=== PATIENT | male | born 2005 | race Caucasian/White ===

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

== ENCOUNTER 2023-01-06 11:16 | Outpatient (REF) | payer BC, SELFPAY ==
[2023-01-06 12:17] LABS: Sickle Cell Scr NEGATIVE (NEGATIVE)
== END 2023-01-06 11:17 | disposition home or self-care (01) ==
LOC: HO.LAB 11:16
PROVIDERS: PCP Physician Assistant; Visit Provider Physician Assistant
DX: Z13.0 Encounter for screening for diseases of the blood and blood-forming organs and certain disorders involving the immune mechanism (principal)
CPT/HCPCS: 36415; 85660

== ENCOUNTER 2023-02-10 14:11 | Outpatient (AMB) | payer BC, SELFPAY ==
--- NOTE | 2023-02-10 14:31 | AM.OFFVISNUR ---
Intake Intake Visit Reasons: Men B Allergies No Known Allergies Allergy (Verified 01/06/23 10:32) Nursing Note Pt here for Men B #1, pt received vaccine and tolerated well. Pt to return in 6 mo for 2nd dose. Immunizations [facility] Performing Provider: Elli Madrid PA-C Administered by: Naomie Goode RN on 02/10/23 14:33 Dose Route Admin Location Lot Number Expiration Date [facility] Supervisor [employer] 0.5 mL IM Left Deltoid [id number] 11/15/23 [id number] [employer] VIS Given Date VIS Provided VIS Publication Date 02/10/23 Single Vaccine 21 Eligibility Eligibility Date Funding Source Not [facility] Eligible 02/10/23 Private Coding Diagnoses Assessment & Plan Assessment & Plan Orders: Orders Meningococcal B Immunization Today Z23 - Encounter for immunization
== END 2023-02-10 14:54 | disposition home or self-care (01) ==
LOC: HO.HMGP 14:11
PROVIDERS: PCP Physician Assistant; Visit Provider Physician Assistant
DX: Z23 Encounter for immunization (principal)
CPT/HCPCS: 90471; 90621

== ENCOUNTER → 2023-02-10 14:35 | Outpatient (REF) | payer BC, SELFPAY ==
--- NOTE | 2023-02-10 14:59 | ECG_ITS ---
Test Reason : CHEST PAIN Blood Pressure : / mmHG Vent. Rate : 056 BPM Atrial Rate : 056 BPM P-R Int : 166 ms QRS Dur : 104 ms QT Int : 402 ms P-R-T Axes : 068 089 060 degrees QTc Int : 387 ms Sinus bradycardia with sinus arrhythmia Early repolarization Otherwise normal ECG No previous ECGs available Referred By: Elli Madrid Electronically Signed By:GABO CARDOZA MD
== END ==
LOC: HO.CARD 14:35
PROVIDERS: PCP Physician Assistant; Visit Provider Physician Assistant
DX: R07.9 Chest pain, unspecified (principal)
CPT/HCPCS: 93005

== ENCOUNTER → 2023-02-10 14:59 | Outpatient (BNV) | payer BC, SELFPAY | PROVIDERS: PCP Physician Assistant; Visit Provider Internal Medicine Cardiovascular Disease | DX: R07.9 Chest pain, unspecified (principal) | CPT/HCPCS: 93010 ==

== ENCOUNTER 2023-05-09 09:27 | Outpatient (REF) | payer BC, SELFPAY ==
--- NOTE | ~2023-05-09 | XR_ITS ---
EXAMINATION: XR FOOT, RIGHT CLINICAL INFORMATION: Pain COMPARISON: None available. TECHNIQUE: AP, lateral, and oblique views of the right foot. FINDINGS: Minimally displaced transverse fracture involving the fifth proximal phalanx distal metadiaphysis. Slight soft tissue prominence overlying fracture site. Joint spaces and alignment are otherwise maintained. XR/XR foot RT min 3V IMPRESSION: 1. Minimally displaced transverse fracture involving the fifth proximal phalanx distal metadiaphysis. 2. Slight soft tissue prominence overlying fracture site.
== END 2023-05-09 09:28 | disposition home or self-care (01) ==
LOC: HO.HMGCX 09:27
PROVIDERS: PCP Physician Assistant; Visit Provider Physician Assistant
DX: M79.671 Pain in right foot (principal)
CPT/HCPCS: 73630

== ENCOUNTER 2023-12-07 12:44 | Outpatient (REF) | payer BC, SELFPAY ==
[2023-12-07 14:23] LABS: Alanine Aminotransferase 19 U/L (0-40); Aspartate Amino Transferase 29 U/L (5-37); Triglycerides 128 mg/dL (<150)
== END 2023-12-07 12:45 | disposition home or self-care (01) ==
LOC: HO.LAB 12:44
PROVIDERS: PCP Physician Assistant; Visit Provider Physician Assistant
DX: L70.0 Acne vulgaris (principal); L85.3 Xerosis cutis; K13.0 Diseases of lips; Z79.899 Other long term (current) drug therapy
CPT/HCPCS: 36415; 84450; 84460; 84478

== ENCOUNTER 2024-01-16 07:46 | Outpatient (REF) | payer BC, SELFPAY ==
[2024-01-16 09:55] LABS: Alanine Aminotransferase 23 U/L (0-40); Aspartate Amino Transferase 26 U/L (5-37); Triglycerides 107 mg/dL (<150)
== END 2024-01-16 07:47 | disposition home or self-care (01) ==
LOC: HO.LAB 07:46
PROVIDERS: PCP Physician Assistant; Visit Provider Physician Assistant
DX: L70.0 Acne vulgaris (principal); L85.3 Xerosis cutis; K13.0 Diseases of lips; Z79.899 Other long term (current) drug therapy
CPT/HCPCS: 36415; 84450; 84460; 84478